=== PATIENT | female | born 1950 | race Hispanic/Latino ===

== ENCOUNTER 2022-08-21 16:43 | Outpatient (CLI) | payer BC, MEDICARE | END 2022-08-21 16:44 | disposition home or self-care (01) | LOC: CSHRAD 16:43 | PROVIDERS: ATTEND Family Medicine | DX: M79.671 Pain in right foot (principal); M19.071 Primary osteoarthritis, right ankle and foot ==

== ENCOUNTER 2022-10-05 13:16 | Outpatient (CLI) | payer MEDICARE, OTHER | END 2022-10-05 13:17 | disposition home or self-care (01) | LOC: CSHMAMMO 13:16 | PROVIDERS: ATTEND Family Medicine | DX: M85.851 Other specified disorders of bone density and structure, right thigh (principal); Z78.0 Asymptomatic menopausal state | CPT/HCPCS: 77063; 77067; 77080 ==